=== PATIENT | male | born 1985 | race Two or more races ===

== ENCOUNTER 2017-06-23 22:26 | Emergency (ER) | payer OTHER ==
[~2017-06-23] VITALS: Ht 182.9 cm; Wt 88.6 kg
[2017-06-23 22:29] VITALS: BP 139/94; PULSE 76; RESP 16; O2SAT 100
--- NOTE | 2017-06-23 23:12 | ED.REPORT ---
HPI-Headache Date of Service Jun 23, 2017 ED Provider: Tess Rodriguez MD Patient is a 31 year old male with a reported history of migraines who presents to the ED complaining of a headache onset earlier today. Associated symptoms include neck pain, eye swelling and photophobia. He denies rhinorrhea, nausea, eye discharge, fever, chills, chest pain or abdominal pain. The patient rates the pain as a 9/10 and reports that the pain is mostly located in the frontal area and occipital area. He states that his headache is similar to his past headaches but he doesn't normally notice the eye swelling, which concerned him. Nursing Notes Stated Complaint: MIGRAINE AND UPPER BACK PAIN Chief Complaint: Headache Nursing Notes Reviewed: Yes Allergies: Coded Allergies: No Known Allergies (Unverified , 06/23/17) General Time Seen by MD: 23:12 Chief Complaint Headache Hx Obtained From: Patient Arrived By: Walk-in Sudden in Onset?: Yes Onset Occurred: 5 - 8 hours ago Symptom Duration: Since onset Location: : Frontal bilateral: Occipital bilateral Quality: Dull, Painful Severity: Current: Pain level 9 out of 10 Similar Sx Previous: Yes Past Medical History Past Medical History migraines Social History Drug Use: THC Ambulatory Status Independent Review of Systems Review of Systems Note: +eye swelling Constitutional: Denies: Chills, Fever Eyes: Reports: Photophobia, Denies: Discharge bilateral GI: Denies: Abdominal pain, Nausea Musculoskeletal: Reports: Neck pain Skin: Denies Itching, Denies Rash Neurologic: Reports: Headache, Denies: Lightheaded, Numbness, Weakness Complete sys rev & neg: except as marked. Respiratory: Denies: Non-productive cough, Shortness of breath Cardiovascular: Denies: Chest pain Allergy / Immune: Denies: Rhinorrhea Physical Exam Initial Vital Signs Vital Signs (First) Date Time Temp Pulse Resp B/P Pulse Ox O2 Delivery O2 Flow Rate FiO2 06/23/17 22:29 36.3 76 16 139/94 100 Nasal Cannula Initial VS: Reviewed, Vital signs normal General/Constitutional: Awake, Alert Head / Eyes: Atraumatic, Normocephalic, PERRL, EOMI photophobia causing tearing Neck: Atraumatic, Supple bilateral lateral neck tenderness palpable left lymphnode Neurologic: Oriented X3, Speech NL, No motor deficits, No sensory deficits, CN II - XII intact, Reflexes equal bilat, Cerebellar NL ENT: Atraumatic, Airway patent, Mucous membranes moist Respiratory / Chest: Atraumatic, Breath sounds NL, Breath sounds = bilat, No respiratory distress Cardiovascular: Heart rate NL, Regular rhythm, Heart sounds NL Abdomen: Atraumatic, Soft, Non-tender Skin: Atraumatic, Color NL, No rash, Warm, Dry Psychiatric: Affect NL, Mood NL Interpretation & Diagnostics Lab Results Interpretation Test 06/23/17 23:59 Hold Purple Top Tube Received (Received) Hold Blue Top Tube Received (Received) Hold [place] Top Tube Received (Received) Re-Eval/Medical Decision Med Decision/Clinical Course Patient presents with headache, this is not a new headache for him. His main concern was some swelling of his eyes but there is no sign of conjunctivitis, dacryocystitis, or periorbital cellulitis. The headache does not have any concerning features but does seem consistent with a migraine, the patient has had these for years and denies any new or differing symptoms, he is neurologically intact. The patient was treated with the usual migraine medications and had complete resolution of his headache. A partial list of differential diagnoses considered were migraine, cluster headache, subarachnoid hemorrhage, meningitis, and intracranial mass. Re-Evaluation/Progress : Time of Eval: 01:36 )( Patient Status: Condition improved Re-Evaluation/Progress Note: Discussed plan for discharge. Patient understands and agrees to plan. All questions were addressed Counseled Regarding: Diagnosis, Lab results, Need for follow-up, When/why to return to ED Discharge & Departure Impression: Primary Impression: Headache Headache type: unspecified Headache chronicity pattern: acute headache Intractability: intractable Qualified Code: R51 - Headache Disposition: Home Discharge Condition All VS Reviewed: Yes Condition: Stable Patient Instructions: Migraine Headache (ED) Additional Instructions: You can follow up with the referred neurologist for further evaluation regarding your headaches and discussion about getting on regular maintenance medication if you continue to experience these headaches frequently. Until then, you can try using Tylenol for your pain. Return to the emergency department if you develop any new or concerning symptoms. Referrals: [facility] (PCP) [facility] Scribe Attestation Portions of this note were transcribed by Millicent Hurley. I, Dr. Rodriguez personally performed the history, physical exam and medical decision-making; I reviewed and confirmed the accuracy of the information in the transcribed note. Signed by: Molly Whiting, 06/23/17 copies to: [facility] Tess Rodriguez MD Jun 23, 2017 23:12 Mima Hurley Jun 23, 2017 23:21
[2017-06-23] MEDS ORDERED: 0.9% Sodium Chloride 1,000 ML IV ONE (23:25)
[2017-06-23] MEDS ORDERED: ProchlorPERazine 5 mg/mL 2 mL Inj IVPUSH ONE (23:25)
[2017-06-23] MEDS ORDERED: 0.9% Sodium Chloride 100 ML ONE (23:54)
[2017-06-24 01:42] VITALS: BP 116/61; PULSE 55; RESP 16; O2SAT 98
== END 2017-06-24 01:47 | disposition home or self-care (01) ==
LOC: SED 22:26
DX: R51 Headache (principal); M54.2 Cervicalgia; H57.8 Other specified disorders of eye and adnexa; H53.143 Visual discomfort, bilateral
CPT/HCPCS: 96374; 96375; 99284; J0780; J1200; J1885; J7030